=== PATIENT | female | born 1970 | race Caucasian/White ===

== ENCOUNTER 2023-06-08 06:42 | Emergency (ER) | payer OTHER ==
[~2023-06-08] VITALS: Ht 165.1 cm; Wt 88.6 kg
[~2023-06-08 06:42] MED LIST: CIPRO500 MG PO; Fioricet 325 MG1 TAB PO; KEFLEX500 MG PO; LOVASTATIN10 MG PO; METHYLERGONOVI0.2 MG PO; MIRALAX POWDER255 GM PO; PERCOCET 325 MG1 TA5 PO; PRENATAL1 TA1 PO; PRILOSEC20 M1 PO; PROZAC20 MG PO; PYRIDIUM200 MG PO; TRAMADOL HCL50 MG PO; VICODIN ES 7501 TAB PO; ZOFRAN4 MG PO
[2023-06-08 07:41] LABS: BASO # 0.1 10*3/uL (0.0-0.1); BASO % 1.2 % (0.0-1.0); EOS # 0.2 10*3/uL (0.0-0.4); HEMATOCRIT 40.3 % (37.0-47.0); LYMPH # 1.8 10*3/uL (1.3-4.4); LYMPH % 29.3 % (27.0-41.0); MEAN CELL VOLUME 82.1 fl (81.0-99.0); MEAN CORPUSCULAR HGB 25.5 pg (27.0-31.0); MEAN PLATELET VOLUME 9.4 fl (9.6-12.3); MONO # 0.4 10*3/uL (0.1-1.0); MONO % 6.3 % (3.0-9.0); NEUT # 3.6 10*3/uL (2.3-7.9); NEUT % 58.9 % (47.0-73.0); PLATELET COUNT AUTOMATED 387 10*3/uL (130-400); RED BLOOD COUNT 4.91 10*6/uL (4.10-5.10); RED CELL DISTRI WIDTH 13.8 % (0-14.5)
[2023-06-08 08:01] LABS: ALKALINE PHOSPHATASE 86 U/L (46-116); BUN 15 mg/dl (9-23); CHLORIDE 105 mmol/L (98-107); POTASSIUM 3.8 mmol/L (3.4-5.1); SGPT/ALT 10 U/L (5-49); TOTAL PROTEIN 6.8 gm/dL (6.0-8.0)
[2023-06-08] MEDS ORDERED: AMOX-CLAV 875-1 EACH PO (08:58)
[2023-06-08] MEDS ORDERED: EPIPEN 2-P0.3 MG/0.3 IJ (08:58)
[2023-06-08 09:08] VITALS: BP 143/90
== END 2023-06-08 09:09 | disposition home or self-care (01) ==
LOC: ED 06:42
PROVIDERS: Emergency Medicine
DX: T78.2XXA Anaphylactic shock, unspecified, initial encounter (principal); K12.2 Cellulitis and abscess of mouth; F41.9 Anxiety disorder, unspecified; G43.909 Migraine, unspecified, not intractable, without status migrainosus; F31.9 Bipolar disorder, unspecified; E78.00 Pure hypercholesterolemia, unspecified

== ENCOUNTER → 2023-07-10 | Outpatient (CLI) | payer OTHER ==
[~2023-07-10] MED LIST changes: +AMOX-CLAV 875-1 EACH PO; +EPIPEN 2-P0.3 MG/0.3 IJ
[2023-07-10 15:47] LABS: HEMATOCRIT 41.3 % (37.0-47.0); MEAN CELL VOLUME 80.8 fl (81.0-99.0); MEAN CORPUSCULAR HGB 25.6 pg (27.0-31.0); MEAN CORPUSCULAR HGB CONC 31.7 g/dl (33.0-37.0); MEAN PLATELET VOLUME 9.3 fl (9.6-12.3); RED BLOOD COUNT 5.11 10*6/uL (4.10-5.10); RED CELL DISTRI WIDTH 14.4 % (0-14.5); WHITE BLOOD COUNT 4.5 10*3/uL (4.8-10.8)
[2023-07-10 16:19] LABS: ALKALINE PHOSPHATASE 92 U/L (46-116); BUN 14 mg/dl (9-23); CHLORIDE 102 mmol/L (98-107); CHOLESTEROL 210 mg/dL (<200); FREE T4 0.81 ng/dl (0.89-1.76); GAMMA GLUTAMYL TRANSPEPTIDASE 21 U/L (0-73); LDL CHOLESTEROL 142 mg/dL (9-159); POTASSIUM 3.7 mmol/L (3.4-5.1); SGPT/ALT 10 U/L (5-49); TOTAL PROTEIN 7.3 gm/dL (6.0-8.0); TRIGLYCERIDES 147 mg/dl (<150)
[2023-07-10 16:25] LABS: VITAMIN D, 25-HYDROXY 51.6 ng/mL (30-100)
[2023-07-11 06:09] LABS: HBSAG Negative (Negative); HEP B CORE AB, IGM Negative (Negative); HEPATITIS C ANTIBODY Non Reactive (Non Reactive)
[2023-07-11 08:08] LABS: AFP TUMOR MARKER <1.8 ng/mL (0.0-9.2)
[2023-07-11 13:06] LABS: LYME INTERPRETATION Lyme Abs Unconfirmed (.)
== END ==
LOC: LAB 15:12
PROVIDERS: ATTEND Family Medicine
DX: Z00.00 Encounter for general adult medical examination without abnormal findings (principal); E55.9 Vitamin D deficiency, unspecified; R53.83 Other fatigue; M79.10 Myalgia, unspecified site; K76.89 Other specified diseases of liver; N95.1 Menopausal and female climacteric states; M25.50 Pain in unspecified joint; C50.919 Malignant neoplasm of unspecified site of unspecified female breast